=== PATIENT | male | born 1945 | race Caucasian/White ===

== ENCOUNTER 2016-11-17 11:12 | Emergency (ER) | payer MEDICARE, BC ==
[~2016-11-17] VITALS: Ht 175.3 cm; Wt 86.8 kg
[~2016-11-17 11:12] MED LIST: AVOD0.5C PO; LORT5TAB PO
[2016-11-17 11:14] VITALS: BP 130/75; PULSE 93; RESP 18; TEMP 97.5; O2SAT 97
[2016-11-17] MEDS ORDERED: BACT800T5 PO (11:26)
[2016-11-17] MEDS ORDERED: TAMS0.4C4 PO (11:30)
[2016-11-17] MEDS ORDERED: METO50TA11 PO (11:30)
[2016-11-17] MEDS ORDERED: ATOR40TA16 PO (11:30)
[2016-11-17] MEDS ORDERED: ASPI-110 PO (11:30)
[2016-11-17] MEDS ORDERED: PROS5TAB PO (11:30)
[2016-11-17] MEDS ORDERED: LANS30CA PO (11:30)
[2016-11-17] MEDS ORDERED: METF500T PO (11:30)
[2016-11-17] MEDS ORDERED: BRIL90TA PO (11:30)
[2016-11-17] MEDS ORDERED: LIDOCAINE 1%/EPINEPHrine 1:100,000 SOLN 20 ML VIAL INFIL ONE (11:30)
--- NOTE | 2016-11-17 11:42 | PD ---
HPI Chief Complaint: Skin Problem Time Seen by Provider: 11:37 Travel History International Travel<30 days: No Contact w/Intl Traveler<30days: No Traveled to known affect area: No History of Present Illness HPI 71-year-old male that presents to the ED for evaluation of possible insect bite to his right hand. The patient has been going on since Saturday. Per patient he went to an urgent care and he was given Keflex and antibiotic ointment. The patient is not improving. Per patient admits painful. Does not know what actually bit him. History of diabetes but no history of MRSA or IV drug abuse. No fevers chills or sweats. Per patient pain is 5 out of 10. Able to move all fingers. No numbness, tingling, weakness. PFSH Past Medical History Hx Anticoagulant Therapy: Yes Cardiovascular Problems: Yes High Cholesterol: Yes Diabetes: Yes Patient Takes Glucophage: Yes Diminished Hearing: No Hypertension: Yes Past Surgical History Cardiac Surgery: Yes Coronary Stent: Yes Social History Alcohol Use: Yes (SOC) Tobacco Use: No Substance Use: No Allergies-Medications (Allergen,Severity, Reaction): Coded Allergies: No Known Allergies (Verified , 11/17/16) Reported Meds & Prescriptions Reported Meds & Active Scripts Active Reported Aspirin 81 (Aspirin) 81 Mg Tabdr 81 Mg PO DAILY Tamsulosin (Tamsulosin HCl) 0.4 Mg Cap 0.4 Mg PO HS Brilinta (Ticagrelor) 90 Mg Tab 90 Mg PO BID Atorvastatin (Atorvastatin Calcium) 40 Mg Tab 40 Mg PO HS Proscar (Finasteride) 5 Mg Tab 5 Mg PO DAILY Do not crush. Metformin (Metformin HCl) 500 Mg Tab 500 Mg PO BIDPC With meals Lansoprazole 30 Mg Capdr 30 Mg PO DAILY Metoprolol Succinate ER 24 HR (Metoprolol Succinate) 50 Mg Tab 50 Mg PO DAILY Review of Systems Except as stated in HPI: all other systems reviewed are Neg Physical Exam Narrative GENERAL: SKIN: Warm and dry. HEAD: Atraumatic. Normocephalic. EYES: Pupils equal and round. No scleral icterus. No injection or drainage. ENT: No nasal bleeding or discharge. Mucous membranes pink and moist. Tongue is midline. No uvula deviation. NECK: Trachea midline. No JVD. CARDIOVASCULAR: Regular rate and rhythm. RESPIRATORY: No accessory muscle use. Clear to auscultation. Breath sounds equal bilaterally. GASTROINTESTINAL: Abdomen soft, non-tender, nondistended. Hepatic and splenic margins not palpable. MUSCULOSKELETAL: Extremities without clubbing, cyanosis, or edema. No obvious deformities. Full range of motion of the entire right hand. Patient does have what appears to be a purulent mass about 2 cm in diameter on the Silastic between the web space of the first and second digit. Tender to touch. Warm to touch. Purulence noted. NEUROLOGICAL: Awake and alert. No obvious cranial nerve deficits. Motor grossly within normal limits. Five out of 5 muscle strength in the arms and legs. Normal speech. PSYCHIATRIC: Appropriate mood and affect; insight and judgment normal. Data Data Last Documented VS Vital Signs Date Time Temp Pulse Resp B/P Pulse Ox O2 Delivery O2 Flow Rate FiO2 11/17/16 11:14 97.5 93 18 130/75 97 Orders Wound Culture And Gram Stain (11/17/16 11:25) Wound Care (11/17/16 11:25) Lidocai-Epi 1%-1:100,000 Inj (Xylocaine- (11/17/16 11:30) MDM Medical Decision Making Medical Screen Exam Complete: Yes Emergency Medical Condition: Yes Medical Record Reviewed: Yes Differential Diagnosis Abscess versus cellulitis versus erysipelas Narrative Course 71-year-old male that presents to the ED for evaluation of abscess to the right hand. Patient was properly examined and was found to have signs and symptoms consistent with appears to be an abscess to the right hand. After explaining procedure to the patient and he agreed to it abscess was incised and drained in procedure note. Please refer to procedure note. Cultures were taken. Patient was told to get packing removal in 2 days. Wound care was endorsed. I will add Bactrim to his antibiotic to cover for MRSA. Patient was instructed to apply warm compresses. See ED for worsening symptoms. Recheck in 48 hours if no improvement. See ED worsening symptoms. Procedures Procedure Narrative After the risks and benefits were discussed the following procedure was performed: INCISION AND DRAINAGE OF ABSCESS: The area was prepped and was sterilely draped. A subcutaneous wheal of 1 % Xylocaine with a total number 5 mL was used to anesthetize the area. The area was properly anesthetized. A number 11 scalpel was used to make a 1 -cm incision across the area of the abscess. Cultures were obtained. The abscess was drained an irrigated with normal saline. Quarter inch iodoform packing was placed in the wound. Sterile dressing applied. Patient advised to have packing removed in two days. Diagnosis Primary Impression: Abscess Patient Instructions: General Instructions Additional Instructions: Change dressings at least once a day. Keep away from water but he can shower as normal. Just stay away from River water, ocean water, pool water. Warm compresses. Motrin or Tylenol for pain as needed. Continue Keflex but add Bactrim to your regimen. Take it with food. See ED worsening symptoms. Recheck in 48 hours if you feel like your symptoms are not improving at all or your require assistance to get your packing removed. Med/Other Pt SpecificInfo: Prescription(s) given, Wound Care Disposition: 01 DISCHARGE HOME Condition: Stable José Miguel Balderas Nov 17, 2016 11:42
== END 2016-11-17 11:55 | disposition home or self-care (01) ==
LOC: PHEFT 11:12
DX: L02.511 Cutaneous abscess of right hand (principal); B95.62 Methicillin resistant Staphylococcus aureus infection as the cause of diseases classified elsewhere
CPT/HCPCS: 10061; 86403; 87070; 87186

== ENCOUNTER 2017-04-29 10:42 | Emergency (ER) | payer MEDICARE, BC ==
[~2017-04-29] VITALS: Ht 175.3 cm; Wt 88.0 kg
[~2017-04-29 10:42] MED LIST changes: +ASPI-110 PO; +ATOR40TA16 PO; -AVOD0.5C PO; +BRIL90TA PO; +LANS30CA PO; -LORT5TAB PO; +METF500T PO; +METO50TA11 PO; +PROS5TAB PO; +TAMS0.4C4 PO
[2017-04-29 10:46] VITALS: BP 133/62; PULSE 65; RESP 16; TEMP 97.9; O2SAT 98
[2017-04-29] MEDS ORDERED: LIDOCAINE HCL 1% 50 ML VIAL INFIL ONE (11:45)
[2017-04-29] MEDS ORDERED: BACT800T5 PO (12:07)
[2017-04-29] MEDS ORDERED: CEPH-459 PO (12:07)
--- NOTE | 2017-04-29 12:09 | PD ---
HPI . Abscesses to posterior aspect of neck Chief Complaint: Skin Problem Time Seen by Provider: 11:02 Travel History International Travel<30 days: No Contact w/Intl Traveler<30days: No Traveled to known affect area: No History of Present Illness HPI 72-year-old male patient presents emergency department for evaluation of abscesses to posterior aspect of neck. Abscesses are about 10 days old. 2 cm 2 cm to aspect the left upper posterior aspect of neck and 1 cm is 1 cm to right medial posterior aspect of neck. Patient denies any fevers, chills, malaise, chest pain, shortness breath. Patient is unsure how the abscesses started. Patient is a type II diabetic. His sugars have been within normal limits according to patient. Patient denies any history of any resistant bacterial infections. 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 Metformin (Metformin HCl) 500 Mg Tab 500 Mg PO BIDPC With meals Lansoprazole 30 Mg Capdr 30 Mg PO DAILY Metoprolol Succinate ER 24 HR (Metoprolol Succinate) 50 Mg Tab 50 Mg PO DAILY Review of Systems Except as stated in HPI: all other systems reviewed are Neg Physical Exam Narrative GENERAL: Well-nourished, well-developed 72-year-old male patient in no acute distress. SKIN: 2 cm 2 cm to aspect the left upper posterior aspect of neck. 1 cm is 1 cm to right medial posterior aspect of neck. Mild fluctuation and erythema localized surrounding abscesses. Focused skin assessment warm/dry. HEAD: Normocephalic. Atraumatic EYES: No scleral icterus. No injection or drainage. NECK: Supple, trachea midline. No JVD or lymphadenopathy. CARDIOVASCULAR: Regular rate and rhythm without murmurs, gallops, or rubs. RESPIRATORY: Breath sounds equal bilaterally. No accessory muscle use. GASTROINTESTINAL: Abdomen soft, non-tender, nondistended. MUSCULOSKELETAL: No cyanosis, or edema. BACK: Nontender without obvious deformity. No CVA tenderness. Data Data Last Documented VS Vital Signs Date Time Temp Pulse Resp B/P (MAP) Pulse Ox O2 Delivery O2 Flow Rate FiO2 04/29/17 10:46 97.9 65 16 133/62 (85) 98 Orders Orders Wound Culture And Gram Stain (04/29/17 11:24) Lidocaine 1% Inj (50 Ml) (Xylocaine 1% I (04/29/17 11:45) MDM Medical Decision Making Medical Screen Exam Complete: Yes Emergency Medical Condition: Yes Medical Record Reviewed: Yes Differential Diagnosis Differential diagnoses include but not limited to cellulitis, abscess, folliculitis Narrative Course 72-year-old male patient presents to emergency room for evaluation of abscesses and back and neck that have been there for the last 10 days. Patient is visiting [place] from [place]. Patient denies any fevers, chills, malaise, chest pain. I&D will be performed. Please see my procedural narrative. Patient will be discharged home with instructions to use heating pads to the site and prescriptions for Keflex and Bactrim. Patient will be instructed to follow up with his primary care in [place] and return to the emergency Department with any signs or symptoms of infection or worsening infection. Diagnosis Primary Impression: Abscess Patient Instructions: Abscess (ED), Abscess Incision and Drainage (DC), General Instructions Additional Instructions: Please return to emergency department if your symptoms infection or worsening infection. Apply heating pads for 20 minutes a day to the area of abscess. Follow up with your primary care provider. Take medications as prescribed. Med/Other Pt SpecificInfo: Prescription(s) given Scripts Cephalexin (Keflex) 250 Mg Cap 250 MG PO Q6H for Infection for 10 Days, #40 CAP 0 Refills Prov: Valorie hCo 04/29/17 Sulfamethoxazole-Trimethoprim (Bactrim DS) 800-160 Mg Tab 1 TAB PO BID for Infection for 10 Days, #20 TAB 0 Refills Prov: Valorie Cho 04/29/17 Disposition: 01 DISCHARGE HOME Condition: Stable Valorie Cho Apr 29, 2017 12:09
== END 2017-04-29 12:14 | disposition home or self-care (01) ==
LOC: PHEFT 10:42
DX: L02.11 Cutaneous abscess of neck (principal); B95.62 Methicillin resistant Staphylococcus aureus infection as the cause of diseases classified elsewhere; E11.9 Type 2 diabetes mellitus without complications; I10 Essential (primary) hypertension; E78.5 Hyperlipidemia, unspecified; Z79.82 Long term (current) use of aspirin; Z79.899 Other long term (current) drug therapy; Z79.01 Long term (current) use of anticoagulants
CPT/HCPCS: 10060; 86403; 87070; 87186